=== PATIENT | male | born 1990 | race Caucasian/White ===

== ENCOUNTER 2017-05-01 23:24 | Emergency (ER) | payer OTHER ==
[~2017-05-01] VITALS: Ht 188 cm; Wt 117.0 kg
[~2017-05-01 23:24] MED LIST: ALBU8.5H3 INH; CETI10CA PO; DENIES; GUAI473L22 PO; IBUP400T22 PO
[2017-05-01 23:29] VITALS: Ht 188 cm; Wt 117.0 kg
--- NOTE | 2017-05-02 00:26 | RADRPT ---
PROCEDURE: XR Chest. CLINICAL INDICATION: Chest pain. TECHNIQUE: Single frontal view of the chest. COMPARISON: 10/08/2016. FINDINGS: The cardiomediastinal silhouette is within normal limits. The lungs are clear. No signs of pleural f luid or pneumothorax are seen. The osseous structures and soft tissues are unremarkable. IMPRESSION: No evidence for active cardiopulmonary disease. RPTAT: [facility] Physician Jimmy Date Time Electronically viewed and signed by Nicolás Mazariegos Physician on 05/02/2017 00:26 RS/
--- NOTE | 2017-05-02 00:27 | ERD ---
ER Documentation Chief Complaint Date/Time DATE: 05/02/17 TIME: 00:26 Chief Complaint pt drank monster this afternoon pt feels weak after that HPI 27-year-old male presents here in emergency department for complaints of palpitation and feeling weakness after drinking monster this afternoon. Patient drank monster energy drink, have the symptoms afterwards. Patient also complaining of chest pain, pressure type pain, is accompanied with palpitations. Patient denies any dyspnea on exertion and dyspnea on lying down. Patient denies any dizziness. Patient denies any numbness or tingling. ROS All systems reviewed and are negative except as per history of present illness. Medications Home Meds Active Scripts Albuterol Sulfate* (Proair HFA*) 8.5 Gm Hfa.aer.ad, 2 PUFF INH Q4H Y for WHEEZING AND SOB, #1 INHALER Prov:ALVARADO FINLEY NP 10/08/16 Ibuprofen* (Motrin*) 400 Mg Tab, 400 MG PO Q6H Y for PAIN AND OR ELEVATED TEMP, #30 TAB Prov:ALVARADO FINLEY NP 10/08/16 Cetirizine Hcl* (Zyrtec*) 10 Mg Capsule, 10 MG PO DAILY, #30 TAB.CHEW Prov:ALVARADO FINLEY NP 10/08/16 Guaifenesin-Codeine Phosphate* (Guaifenesin* AC Cough Syrup) 473 Ml Liquid, 10 ML PO Q4H Y for COUGH, #120 ML Prov:ALVARADO FINLEY NP 10/08/16 Reported Medications [Denies] No Conflict Check 12/21/09 Allergies Allergies: Coded Allergies: No Known Drug Allergy (Verified Allergy, Mild, 12/21/09) PMhx/Soc Medical and Surgical Hx: pt denies Medical Hx History of Surgery: Yes (R ARM SURGERY IN 06/29) Hx Neurological Disorder: No Hx Respiratory Disorders: No Hx Cardiac Disorders: No Hx Miscellaneous Medical Probl: No Hx Alcohol Use: No Hx Substance Use: No Hx Tobacco Use: No FmHx Family History: No coronary disease, No diabetes, No other Physical Exam Vitals Vital Signs Date Time Temp Pulse Resp B/P Pulse Ox O2 Delivery O2 Flow Rate FiO2 05/01/17 23:29 95.5 95 20 135/78 98 Physical Exam GENERAL: The patient is well developed and appropriate for usual state of health, in no apparent distress. CHEST: Clear to auscultation bilaterally. There are no rales, wheezes or rhonchi. HEART: Regular rate and rhythm. No murmurs, clicks, rubs or gallops. No S3 or S4. ABDOMEN: Soft, nontender and nondistended. Good bowel sounds. No rebound or guarding. No gross peritonitis. No gross organomegaly or masses. No Townsend sign or McBurney point tenderness. BACK: No midline or flank tenderness. EXTREMITIES: Equal pulses bilaterally. There is no peripheral clubbing, cyanosis or edema. No focal swelling or erythema. Full range of motion. Grossly neurovascularly intact. NEURO: Alert and oriented. Cranial nerves 2-12 intact. Motor strength in all 4 extremities with 5/5 strength. Sensation grossly intact. Normal speech and gait. SKIN: There is no apparent rash or petechia. The skin is warm and dry. HEMATOLOGIC AND LYMPHATIC: There is no evidence of excessive bruising or lymphedema. No gross cervical, axillary, or inguinal lymphadenopathy. Result Diagram: 05/02/17 0041 05/02/17 0045 Results 24 hrs Laboratory Tests Test 05/02/17 00:41 05/02/17 00:45 White Blood Count 12.010^3/ul Red Blood Count 5.5910^6/ul Hemoglobin 15.9g/dl Hematocrit 48.5% Mean Corpuscular Volume 86.8fl Mean Corpuscular Hemoglobin 28.4pg Mean Corpuscular Hemoglobin Concent 32.8g/dl Red Cell Distribution Width 13.7% Platelet Count 24674^3/UL Mean Platelet Volume 12.2fl Neutrophils % 61.8% Lymphocytes % 28.3% Monocytes % 6.2% Eosinophils % 2.6% Basophils % 0.6% Nucleated Red Blood Cells % 0.0/100WBC Neutrophils # 7.410^3/ul Lymphocytes # 3.410^3/ul Monocytes # 0.810^3/ul Eosinophils # 0.310^3/ul Basophils # 0.110^3/ul Nucleated Red Blood Cells # 0.010^3/ul Sodium Level 135mmol/L Potassium Level 3.7mmol/L Chloride Level 100mmol/L Carbon Dioxide Level 29mmol/L Anion Gap 10 Blood Urea Nitrogen 9mg/dl Creatinine 0.72mg/dl Glucose Level 85mg/dl Calcium Level 10.0mg/dl Total Bilirubin 0.1mg/dl Direct Bilirubin 0.00mg/dl Indirect Bilirubin 0.1mg/dl Aspartate Amino Transf (AST/SGOT) 28IU/L Alanine Aminotransferase (ALT/SGPT) 49IU/L Alkaline Phosphatase 75IU/L Troponin I < 0.012ng/ml Total Protein 8.2g/dl Albumin 5.0g/dl Globulin 3.20g/dl Albumin/Globulin Ratio 1.56 EKG was done, read by me and is normal sinus rhythm at a rate of 71, normal axis , there is no ST changes or changes in the EKG that indicates any cardiac emergencies at this time. Patient's EKG was also reviewed by Dr. Caba. Impression: no acute findings on EKG PROCEDURE: XR Chest. CLINICAL INDICATION: Chest pain. TECHNIQUE: Single frontal view of the chest. COMPARISON: 10/08/2016. FINDINGS: The cardiomediastinal silhouette is within normal limits. The lungs are clear. No signs of pleural fluid or pneumothorax are seen. The osseous structures and soft tissues are unremarkable. IMPRESSION: No evidence for active cardiopulmonary disease. RPTAT: [facility] Physician Jimmy Date Time Electronically viewed and signed by Physician Jimmy on 05/02/2017 00:26 RS/ CC: ALVARADO FINLEY NP Procedures/MDM Medical Decision Making: His chest pain palpitations and weakness nonspecific at this time, most likely can be from the monster drink. There is low suspicion for cardiopulmonary emergencies at this time. Patient has low risk factors. EKG is normal, there is no changes in the EKG that indicates cardiac emergencies. Chest X-ray does not show cardiopulmonary emergencies at this time. There is low suspicion for aortic aneurysm, myocardial infarction, pneumothorax, pleural effusion, pulmonary embolism, or any other cardiopulmonary emergencies at this time. Cardiac markers are normal. Patient was advised to see a post graduate intern specialist for further evaluation, is advised to stop taking caffeinated drinks, follow-up with primary care doctor in 1-2 days for reevaluation of symptoms. Patient was advised to return to emergency department for new worsening symptoms. Dispostion: Home. Stable Departure Diagnosis: Primary Impression: Atypical chest pain Additional Impression: Palpitations Condition: Stable Patient Instructions: Chest Pain, Uncertain Cause, Palpitations Additional Instructions: Patient was advised to see a post graduate intern specialist for further evaluation, is advised to stop taking caffeinated drinks, follow-up with primary care doctor in 1-2 days for reevaluation of symptoms. Patient was advised to return to emergency department for new worsening symptoms. ALVARADO FINLEY NP May 02, 2017 00:27
[2017-05-02 01:42] LABS: ADD SCAN DIFF NO
[2017-05-02 01:46] LABS: BASOPHIL # 0.1 10^3/ul (0.0-0.1); BASOPHILS % 0.6 % (0.0-2.0); EOSINOPHILS # 0.3 10^3/ul (0.0-0.5); EOSINOPHILS % 2.6 % (0.0-7.0); HEMATOCRIT 48.5 % (42.0-52.0); HEMOGLOBIN 15.9 g/dl (14.0-18.0); LYMPHOCYTES # 3.4 10^3/ul (0.8-2.9); LYMPHOCYTES % 28.3 % (15.0-51.0); MEAN CORPUSCULAR HEMOGLOBIN 28.4 pg (29.0-33.0); MEAN CORPUSCULAR HGB CONC 32.8 g/dl (32.0-37.0); MEAN CORPUSCULAR VOLUME 86.8 fl (82.0-101.0); MEAN PLATELET VOLUME 12.2 fl (7.4-10.4); MONOCYTE # 0.8 10^3/ul (0.3-0.9); MONOCYTES % 6.2 % (0.0-11.0); NEUTROPHIL # 7.4 10^3/ul (1.6-7.5); NEUTROPHILS % 61.8 % (39.0-77.0); PLATELET COUNT 223 10^3/UL (140-415); RED BLOOD COUNT 5.59 10^6/ul (4.70-6.10); RED CELL DISTRIBUTION WIDTH 13.7 % (11.5-14.5)
[2017-05-02 02:06] LABS: ALANINE AMINOTRANSFERASE 49 IU/L (13-69); ALBUMIN/GLOBULIN RATIO 1.56; ALKALINE PHOSPHATASE 75 IU/L (42-121); ANION GAP 10 (8-16); ASPARTATE AMINO TRANSFERASE 28 IU/L (15-46); BILIRUBIN,INDIRECT 0.1 mg/dl (0-1.1); BILIRUBIN,TOTAL 0.1 mg/dl (0.2-1.3); BLOOD UREA NITROGEN 9 mg/dl (7-20); CARBON DIOXIDE 29 mmol/L (21-31); CHLORIDE 100 mmol/L (97-110); CREATININE 0.72 mg/dl (0.61-1.24); GLUCOSE 85 mg/dl (70-220); POTASSIUM 3.7 mmol/L (3.5-5.1); SODIUM 135 mmol/L (135-144); TOTAL PROTEIN 8.2 g/dl (6.1-8.1)
[2017-05-02 02:31] LABS: TROPONIN-I < 0.012 ng/ml (0.00-0.12)
[2017-05-02 03:18] VITALS: BP 141/72; PULSE 88; RESP 17; TEMP 97.4
== END 2017-05-02 03:19 | disposition home or self-care (01) ==
LOC: FTE 23:24
DX: R07.89 Other chest pain (principal); R00.2 Palpitations
CPT/HCPCS: 36415; 71010; 80053; 84484; 85025; 93005; Z7502